=== PATIENT | male | born 1985 | race Caucasian/White ===

== ENCOUNTER 2023-02-25 12:54 | Emergency (ER) | payer OTHER, SELFPAY ==
[2023-02-25 13:00] VITALS: BP 118/79; PULSE 117; RESP 18; TEMP 36.9; O2SAT 100; BMI 31.8
[2023-02-25 14:12] LABS: Basophils # 0.1 10^3/uL (0.0-0.1); Basophils % 0.3 %; Eosinophils % 0.1 %; Hemoglobin 15.2 g/dL (11.7-16.6); Lymphocytes # 0.8 10^3/uL (0.8-4.8); Lymphocytes % 4.2 %; Mean Corpuscular HGB Conc 33.8 g/dL (30.0-36.0); Mean Corpuscular Hemoglobin 28.4 pg (28.0-34.0); Mean Platelet Volume 10.6 fL (7.4-10.4); Monocytes # 0.8 10^3/uL (0.2-0.9); Monocytes % 4.4 %; Neutrophils # 16.88 10^3/uL (1.8-7.7); Neutrophils % 90.4 %; Nucleated Red Blood Cells % 0 %; Platelet Count 372 10^3/cmm (130-400); Red Blood Count 5.36 10^6/uL (4.1-5.3); Red Cell Distribution Width 12.7 % (12.1-15.1); White Blood Count 18.7 10^3/uL (4.0-10.0)
[2023-02-25 14:30] LABS: Alanine Aminotransferase 26 U/L (0-41); Albumin Level 4.5 g/dL (3.5-5.2); Alkaline Phosphatase 109 U/L (40-130); Anion Gap 18.3 (5-19); Aspartate Amino Transferase 23 U/L (0-40); Blood Urea Nitrogen 17 mg/dL (6-20); Calcium 9.5 mg/dL (8.5-10.5); Carbon Dioxide 23 mmol/L (22-29); Chloride 98 mmol/L (98-107); Glomerular Filtration Rate 83.2 mL/min (90-130); Glucose 111 mg/dL (65-115); Lipase 67 U/L (13-60); Osmolality Calculated 282 mOsm/kg (285-295); Potassium 4.3 mmol/L (3.5-5.1); Sodium 135 mmol/L (136-145); Total Bilirubin 0.5 mg/dL (0.15-1.2); Total Protein 8.5 g/dL (6.6-8.7)
--- NOTE | 2023-02-25 14:40 | CTR_ITS ---
PROCEDURE INFORMATION: Exam: CT Abdomen And Pelvis With Contrast Exam date and time: 02/25/2023 2:49 PM Age: 38 years old Clinical indication: Abdominal pain TECHNIQUE: Imaging protocol: Computed tomography of the abdomen and pelvis with contrast. Radiation optimization: All CT scans at this facility use at least one of these dose optimization techniques: automated exposure control; mA and/or kV adjustment per patient size (includes targeted exams where dose is matched to clinical indication); or iterative reconstruction. Contrast material: OMNI 350; Contrast volume: 100 ml; Contrast route: INTRAVENOUS (IV); REPORTING DATA: Count of CT and Cardiac NM exams in prior 12 months: This patient has received 0 known CTs and 0 known cardiac nuclear medicine studies in the 12 months prior to the current study. COMPARISON: No relevant prior studies available. RADIATION DOSE METRICS: Total DLP (mGy-cm): 814.41 FINDINGS: Lungs: Lung bases are clear. Liver: Mild fatty infiltration throughout the liver. No masses or enlargement detected. Gallbladder and bile ducts: Normal. No calcified stones. No ductal dilation. Pancreas: Unremarkable. Main pancreatic duct is not significantly dilated. Spleen: Normal. No splenomegaly. Adrenal glands: Normal. No mass. Kidneys and ureters: Normal. No hydronephrosis. Stomach and bowel: Large bowel is collapsed and unopacified limiting assessment. However there appears to be diffuse colonic wall thickening with mural stratification that may be due to submucosal edema or fat deposition primarily involving the right colon and transverse colon. Adjacent pericolonic fat planes are preserved.. Findings are suspicious for mild segmental colitis. Remainder of the GI tract is unremarkable. Appendix: No evidence of acute appendicitis. Intraperitoneal space: Unremarkable. No free air. No significant fluid collection. Vasculature: Unremarkable. No abdominal aortic aneurysm. Lymph nodes: Unremarkable. No enlarged lymph nodes. Urinary bladder: Urinary bladder is collapsed and difficult to adequately assess. Reproductive: Unremarkable as visualized. Bones/joints: Unremarkable. No acute fracture. Soft tissues: Unremarkable. CT/CT abdomen pelvis w con* [id number] IMPRESSION: Changes involving the colonic wall of the right half of the large bowel suspicious for mild segmental colitis. Please correlate clinically.
[2023-02-25 14:54] LABS: Add Urine Microscopic? NO; Charge for UA Resulting for Rev
--- NOTE | 2023-02-25 15:10 | W.ED.ABDPA2 ---
HPI - Abdominal Pain General: Chief Complaint: Abdominal Pain Stated Complaint: abd pain, chills Time Seen by Provider: 02/25/23 14:53 Source: patient Mode of arrival: ambulatory Limitations: no limitations History of Present Illness: Patient is a nice 38-year-old male who presents to the ED today with a complaint of significant lower abdominal pains. He states pain began roughly around 8 AM this morning. He states he has had multiple episodes of foamy yellow emesis as well as multiple episodes of watery diarrhea. He has not noticed any bloody or dark stools. He describes the pain to his lower abdomen as sharp, crampy, and intermittent. He does feel like he has had similar symptoms previously although does not ever remember a specific diagnosis. No fevers. No previous abdominal surgeries. MD elicited complaint: abdominal pain Pertinent past history: none Onset (ago): hour(s) Pain Consistency: intermittent Location: RLQ and LLQ Severity: severe Quality: cramping Radiation: none Migration to: no migration Exacerbating factors: nothing Relieving factors: nothing Associated Symptoms: Reports chills, GI cramping, diarrhea, nausea and vomiting; Denies dysuria, fever(s), hematochezia, hematuria, hematemesis and melena Review of Systems Const: Reports: chills and body aches; Denies: fever(s) Card: Denies: chest pain Resp: Denies: dyspnea GI: Reports: abdominal pain, nausea, vomiting, diarrhea and GI cramping; Denies: hematemesis, hematochezia or melena : Denies: flank pain, dysuria or hematuria Musc: Denies: neck pain, back pain, extremity pain or joint pain Skin/Breast: Denies: rash Neuro: Denies: headache(s), numbness in extremities, weakness in extremities or sensory changes Physical Exam Const: COMMON NORMALS: average body habitus, patient oriented x3, no limitations, healthy appearing, alert and well nourished GENERAL APPEARANCE: cooperative and in distress (appears uncomfortable secondary to pain) ORIENTATION/CONSCIOUSNESS: Yes awake, Yes oriented to person, Yes oriented to place and Yes oriented to time HENMT: COMMON NORMALS: normocephalic and atraumatic HEAD & SCALP: normal to inspection, normocephalic and atraumatic Resp: COMMON NORMALS: normal respiratory effort and clear to auscultation bilaterally AUSCULTATION: clear to auscultation bilaterally Cardio: COMMON NORMALS: regular rhythm RATE: tachycardic RHYTHM: regular rhythm GI: COMMON NORMALS: Normal to inspection, nondistended, normoactive bowel sounds present, Soft to palpation and no masses INSPECTION: Yes normal to inspection AUSCULTATION: Yes normoactive bowel sounds PALPATION: Yes Soft to palpation, Yes Tenderness to palpation present (GI) (throughout lower abdomen mostly to right lower), Yes Guarding due to palpation present (GI) and No Rigid due to palpation : COMMON NORMALS: Yes no CVA tenderness BLADDER/KIDNEY EXAM: Yes no CVA tenderness Back/Pelvis: COMMON NORMALS: no CVA tenderness, thoracic and lumbar spine normal to inspection, no thoracic nor lumbar tenderness and thoraco-lumbar ROM normal Extremity: COMMON NORMALS: normal to inspection GENERAL: Yes normal exam except as noted Neuro: DELIA COMA SCALE: document GCS findings Delia coma scale eye opening: Spontaneous Delia coma scale verbal response: Orientated [place] coma scale motor response: Obey commands [place] coma scale total score: 15 COMMON NORMALS: patient oriented x3 SENSORIUM/ORIENTATION: Yes alert, Yes oriented to person, Yes oriented to place and Yes oriented to time Skin: COMMON NORMALS: no rashes or lesions noted GENERAL SKIN EXAM: no rashes or lesions noted Course Vital Signs: Vital signs: Vital Signs Temperature 98.4 F 02/25/23 13:00 Pulse Rate 108 H 02/25/23 15:50 Respiratory Rate 18 02/25/23 13:00 Blood Pressure 106/66 02/25/23 15:50 Pulse Oximetry 94 02/25/23 15:50 Oxygen Delivery Me thod Room Air 02/25/23 13:00 MDM - Abdominal Pain Medical Decision Making CT scan significant for mild segmental colitis. He is mildly tachycardic with a white count of 18.7. He does have a normal lactate. Remainder of blood work is unremarkable. Symptoms just beginning today. Patient states he would like to go home if possible. He was given IV Cipro/Flagyl prior to discharge. He will be sent home with oral prescriptions for Cipro and Flagyl as well as something for pain/nausea. He is requesting something for cramping. Strict return ED precautions were given otherwise I would like him to follow-up with primary care within the week. Lab Data 02/25/23 13:49 02/25/23 13:49 Labs/Radiology: Radiology Impressions Abdomen/Pelvis CT 02/25/23 14:40 IMPRESSION: Changes involving the colonic wall of the right half of the large bowel suspicious for mild segmental colitis. Please correlate clinically. Laboratory Results WBC 18.7 10^3/uL (4.0-10.0) H 02/25/23 13:49 RBC 5.36 10^6/uL (4.1-5.3) H 02/25/23 13:49 Hgb 15.2 g/dL (11.7-16.6) 02/25/23 13:49 Hct 45.0 % (42.0-52.0) 02/25/23 13:49 MCV 84.0 fl (80-94) 02/25/23 13:49 MCH 28.4 pg (28.0-34.0) 02/25/23 13:49 MCHC 33.8 g/dL (30.0-36.0) 02/25/23 13:49 RDW 12.7 % (12.1-15.1) 02/25/23 13:49 Plt Count 372 10^3/cmm (130-400) 02/25/23 13:49 MPV 10.6 fL (7.4-10.4) H 02/25/23 13:49 Neut % (Auto) 90.4 % 02/25/23 13:49 Lymph % (Auto) 4.2 % 02/25/23 13:49 [place] % (Auto) 4.4 % 02/25/23 13:49 Eos % (Auto) 0.1 % 02/25/23 13:49 Baso % (Auto) 0.3 % 02/25/23 13:49 Neut # (Auto) 16.88 10^3/uL (1.8-7.7) H 02/25/23 13:49 Lymph # (Auto) 0.8 10^3/uL (0.8-4.8) 02/25/23 13:49 [place] # (Auto) 0.8 10^3/uL (0.2-0.9) 02/25/23 13:49 Eos # (Auto) 0.0 10^3/uL (0.0-0.8) 02/25/23 13:49 Baso # (Auto) 0.1 10^3/uL (0.0-0.1) 02/25/23 13:49 Nucleated RBC % (auto) 0 % 02/25/23 13:49 Nucleated RBCs # 0.0 /100WBC 02/25/23 13:49 Sodium 135 mmol/L (136-145) L 02/25/23 13:49 Potassium 4.3 mmol/L (3.5-5.1) 02/25/23 13:49 Chloride 98 mmol/L (98-107) 02/25/23 13:49 Carbon Dioxide 23 mmol/L (22-29) 02/25/23 13:49 Anion Gap 18.3 (5-19) 02/25/23 13:49 BUN 17 mg/dL (6-20) 02/25/23 13:49 Creatinine 1.0 mg/dL (0.7-1.2) 02/25/23 13:49 GFR Calculation 83.2 mL/min (90-130) L 02/25/23 13:49 Glucose 111 mg/dL (65-115) 02/25/23 13:49 Calculated Osmolality 282 mOsm/kg (285-295) L 02/25/23 13:49 Lactic Acid 2.1 mmol/L (0.5-2.2) 02/25/23 13:49 Calcium 9.5 mg/dL (8.5-10.5) 02/25/23 13:49 Total Bilirubin 0.5 mg/dL (0.15-1.2) 02/25/23 13:49 AST 23 U/L (0-40) 02/25/23 13:49 ALT 26 U/L (0-41) 02/25/23 13:49 Alkaline Phosphatase 109 U/L (40-130) 02/25/23 13:49 Total Protein 8.5 g/dL (6.6-8.7) 02/25/23 13:49 Albumin 4.5 g/dL (3.5-5.2) 02/25/23 13:49 Globulin 4.0 g/dL (1.3-4.6) 02/25/23 13:49 Lipase 67 U/L (13-60) H 02/25/23 13:49 Urine Color Yellow (Yellow) 02/25/23 14:45 Urine Appearance Clear (CLEAR) 02/25/23 14:45 Urine pH 8 (5-7) H 02/25/23 14:45 Ur Specific [place] 1.015 (1.005-1.030) 02/25/23 14:45 Urine Protein Neg (Negative) 02/25/23 14:45 Urine Glucose (UA) Norm (Normal) 02/25/23 14:45 Urine Ketones 1+ (Negative) H 02/25/23 14:45 Urine Blood Neg (Negative) 02/25/23 14:45 Urine Nitrate Negative (Negative) 02/25/23 14:45 Urine Bilirubin Neg (Negative) 02/25/23 14:45 Prot Sulfosalicylic Acd Negative (Negative) 02/25/23 14:45 Urine Urobilinogen Norm mg/dL (Negative) 02/25/23 14:45 Ur Leukocyte Esterase Negative (Negative) 02/25/23 14:45 Discharge Plan Discharge Patient Disposition: Home Clinical Impression: Colitis Condition: Stable Prescriptions: New hydrocodone-acetaminophen 5-325 mg tablet 1 tab PO Q6H PRN (Reason: pain) Qty: 14 0RF metronidazole 500 mg tablet 500 mg PO BID 7 Days Qty: 14 0RF Cipro 500 mg tablet 500 mg PO Q12H Qty: 14 0RF ondansetron 4 mg tablet,disintegrating 4 mg PO Q8H PRN (Reason: nausea and vomiting) Qty: 14 0RF dicyclomine 10 mg capsule 10 mg PO TID Qty: 14 0RF Discharge Orders: Discharge ED (Routine); Ordered 02/25/23 Ordered By: Wendy Callejas Patient Instructions: Colitis (ED), Opioid Safety, Pain Management Activity Restrictions/Additional Instructions: You need to fill medications especially your antibiotics and start them immediately. We need to see you in the emergency department for any worsening abdominal pains, continued episodes of vomiting or diarrhea, inability to hold down your antibiotics, fevers greater than 100.4 or generally feeling worse or unwell, or any other concerns you may have. Please follow up with primary care within a week for re-evaluation. I hope you begin to feel better soon. 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
[2023-02-25] MEDS: metroNIDAZOLE IV 500 MG/100 ML PREMIX 100 MG IV (15:43)
[2023-02-25 15:44] LABS: Bilirubin Urine Neg (Negative); Blood Urine Neg (Negative); Glucose Urine UA Norm (Normal); Ketones Urine 1+ (Negative); Nitrate Urine Negative (Negative); Protein Urine Neg (Negative); Specific Gravity, Urine 1.015 (1.005-1.030); Sulfosalicylic Acid Urine Negative (Negative); Urine Appearance Clear (CLEAR); Urine Color Yellow (Yellow); pH Urine 8 (5-7)
[2023-02-25 15:45] LABS: Leukocyte Esterase Urine Negative (Negative); Urobilinogen Urine Norm (Negative)
[2023-02-25] MEDS: ciprofloxacin 400 MG/200 ML PREMIX 200 MG IV (15:47)
[2023-02-25] MEDS: dicyclomine 10 mg Capsule PO (15:47)
[2023-02-25 15:50] VITALS: BP 106/66; PULSE 108; O2SAT 94
[2023-02-25 16:23] LABS: Lactic Sepsis W/Reflex 2.1 mmol/L (0.5-2.2)
[2023-02-25 17:13] LABS: Reflex Lactate Order REFLEX LACTIC ORDERD
--- NOTE | 2023-02-28 14:36 | DCPLANNER ---
item repair manager called patient due to no primary care physician - no answer at this time.
== END 2023-02-25 17:51 | disposition home or self-care (01) ==
PROVIDERS: Emergency Medicine; Emergency Provider Physician Assistant
DX: K52.9 Noninfective gastroenteritis and colitis, unspecified (principal)
CPT/HCPCS: 36415; 74177; 80053; 81003; 83605; 83690; 85025; 96365; 96366; 99285; J0744; J3490; Q9967